=== PATIENT | male | born 1970 | race African-American/Black ===

== ENCOUNTER 2017-12-07 17:18 | Emergency (ER) | payer MEDICARE, MEDICAID ==
[~2017-12-07] VITALS: Ht 160 cm; Wt 105.0 kg
[~2017-12-07 17:18] MED LIST: DICY10 PO; HYDR50TA5 PO; METO50CR PO; OXYC-360 PO; TAMS0.4C67 PO; ZOFR4TAB3 SL
[2017-12-07 17:22] VITALS: BP 129/58; PULSE 92; RESP 16; O2SAT 97
[2017-12-07] MEDS ORDERED: [UNRECOGNIZED DRUG - CODE] (17:40)
[2017-12-07] MEDS ORDERED: VANC1000P IV (17:40)
[2017-12-07] MEDS ORDERED: LOSA25TA PO (17:40)
[2017-12-07] MEDS ORDERED: ALTEPLASE RECOMBINANT 2 MG VIAL INTRACATH ONE (17:45)
--- NOTE | 2017-12-07 18:02 | PD ---
HPI Chief Complaint: General Counsel Problem Time Seen by Provider: 17:40 Travel History International Travel<30 days: No Contact w/Intl Traveler<30days: No Traveled to known affect area: No History of Present Illness HPI 47-year-old male here reporting that his PICC line in his right upper extremity is not flushing. Patient is currently being treated with IV vancomycin for septic joint of the right knee. Patient originally had knee replacement 2008. PICC line was placed 11/30/16 in [place] after he underwent revision/surgical washout of the right knee. He reports compliance with his medications and administers 750 mg of IV vancomycin twice daily. He denies fever or chills. Does not endorse worsening pain or swelling of the leg. He was unable to administer his IV antibiotics this morning because the line would not flush. PFSH Past Medical History Arthritis: Yes Autoimmune Disease: Yes (HIV POSITIVE) Blood Disorders: Yes (HEMOPHILIA) Cancer: No Cardiovascular Problems: Yes (HYPERTENSION) Diminished Hearing: No Genetic Disorder: Yes (HEMOPHILIA) Genitourinary: No Hepatitis: Yes Hypertension: Yes Immune Disorder: Yes Musculoskeletal: Yes (FX RT ELBOW; L KNEE REPLACED) Neurologic: No Psychiatric: No Reproductive: No Respiratory: No Past Surgical History Abdominal Surgery: No Cardiac Surgery: No Ear Surgery: No Endocrine Surgery: No Eye Surgery: No Genitourinary Surgery: No Gynecologic Surgery: No Joint Replacement: Yes (BILATERAL KNEE) Neurologic Surgery: No Oral Surgery: No Pacemaker: No Thoracic Surgery: No Other Surgery: Yes Social History Alcohol Use: Yes (SOCIAL) Tobacco Use: No Substance Use: No Allergies-Medications (Allergen,Severity, Reaction): Coded Allergies: azithromycin (Unverified Allergy, Severe, HIVES &SOB, 12/07/17) erythromycin base (Unverified Allergy, Severe, HIVES &SOB, 12/07/17) gentamicin (Unverified Allergy, Severe, HIVES & SOB, 12/07/17) penicillin G (Unverified Allergy, Severe, HIVES & SOB, 12/07/17) amoxicillin (Unverified Allergy, Intermediate, HIVES, SOB, 12/07/17) ibuprofen (Unverified Allergy, Mild, INTERNAL BLEEDING, 12/07/17) Reported Meds & Prescriptions Reported Meds & Active Scripts Active Reported Losartan (Losartan Potassium) 25 Mg Tab Unknown Dose PO DAILY Adynovate (Antihemo.fviii,Full Length Peg) 3,000 (+/-) Unit Range Vial Unknown Dose Vancomycin Inj (Vancomycin HCl) 1 Gram Inj 750 Mg IV Q12HR Review of Systems Except as stated in HPI: all other systems reviewed are Neg General / Constitutional: No: Fever Eyes: No: Visual changes HENT: No: Headaches Cardiovascular: No: Chest Pain or Discomfort Respiratory: No: Shortness of Breath Gastrointestinal: No: Abdominal Pain Genitourinary: No: Dysuria Musculoskeletal: No: Pain Skin: No Rash Neurologic: No: Weakness Physical Exam Narrative GENERAL: Alert and well-appearing 47-year-old male SKIN: Warm and dry. HEAD: Normocephalic. EYES: No injection or drainage. NECK: Supple CARDIOVASCULAR: Regular rate and rhythm without murmurs, gallops, or rubs. RESPIRATORY: Breath sounds equal bilaterally. No accessory muscle use. GASTROINTESTINAL: Obese abdomen abdomen soft, non-tender. MUSCULOSKELETAL: PICC line securely in place to his right upper extremity. No evidence of infection or infiltration. Right lower extremity is bandaged in Javier wrap and knee immobilizer. 2+ DP pulse. Normal sensation. Patient freely move the toes. BACK: No CVA tenderness. Data Data Last Documented VS Vital Signs Date Time Temp Pulse Resp B/P (MAP) Pulse Ox O2 Delivery O2 Flow Rate FiO2 12/07/17 17:22 92 16 129/58 (81) 97 Orders Orders Cathflo Activase Inj (Cathflo Activase I (12/07/17 17:45) Heparin Central Flush (Heparin Central F (12/07/17 18:15) Sodium Chloride 0.9% Flush (Ns Flush) (12/07/17 18:15) [facility] Medical Decision Making Medical Screen Exam Complete: Yes Emergency Medical Condition: Yes Differential Diagnosis Clogged PICC line, Narrative Course 47-year-old male being treated for septic joint here with a clogged PICC line in the right upper extremity. Patient missed his morning dose due to malfunctioning PICC line. He does not endorse any new or worsening symptoms related to the right lower extremity. No systemic signs of infection. PICC line flush was attempted with sterile saline with no success. Cathflo flush attempted with success. PICC line is now patent, confirmed with blood return and flushing easily. Diagnosis Primary Impression: Occlusion of peripherally inserted central catheter (PICC) line Qualified Codes: T82.898A - Other specified complication of vascular prosthetic devices, implants and grafts, initial encounter Referrals: Orthopaedic Surgeon Primary Care Physician Additional Instructions: Continue your IV vancomycin as directed. Follow-up with your primary doctor and orthopedic surgeon scheduled appointments. Disposition: 01 DISCHARGE HOME Condition: Stable Socorro Davidson Dec 07, 2017 18:02
[2017-12-07] MEDS ORDERED: SODIUM CHLORIDE 0.9% FLUSH 10 ML FLUSH IVF PRN (18:15)
== END 2017-12-07 18:43 | disposition home or self-care (01) ==
LOC: PHEFT 17:18
DX: T82.898A Other specified complication of vascular prosthetic devices, implants and grafts, initial encounter (principal); M00.9 Pyogenic arthritis, unspecified; I10 Essential (primary) hypertension; Z21 Asymptomatic human immunodeficiency virus [HIV] infection status; Z88.0 Allergy status to penicillin; Z88.1 Allergy status to other antibiotic agents; Z88.6 Allergy status to analgesic agent; Z79.2 Long term (current) use of antibiotics; Z79.899 Other long term (current) drug therapy
CPT/HCPCS: 36593; 99283; J1642; J2997